=== PATIENT | male | born 1940 | race Caucasian/White ===

== ENCOUNTER 2024-09-28 22:01 | Inpatient (IN) | payer MEDICARE, OTHER, SELFPAY ==
[2024-09-28 12:33] VITALS: BMI 21.8
[2024-09-28 12:35] VITALS: BP 171/105
[2024-09-28 13:17] LABS: ALT (SGPT) 145 U/L (0-50); AST (SGOT) 137 U/L (17-59); Albumin 4.2 g/dl (3.5-5.0); Alkaline Phosphatase 389 U/L (38-126); Blood Urea Nitrogen 23 mg/dl (9-20); Carbon Dioxide 24 mmol/L (22-30); Chloride 94 mmol/L (98-107); Estimated Creatinine Clearance 47 ml/min; Glucose 110 mg/dl (70-99); Lipase 143 U/L (23-300); Potassium 4.6 mmol/L (3.5-5.1); Sodium 130 mmol/L (135-145); Total Bilirubin 19.5 mg/dl (0.2-1.3); Total Protein 7.8 g/dl (6.3-8.2); eGFR > 60.00
[2024-09-28 13:52] LABS: % Basophils 0.4 % (0-2); % Eosinophils 0.4 % (0-6); % Lymphocytes 16.4 % (20.5-51.1); % Monocytes 12.3 % (1.7-9.3); % Neutrophils 69.5 % (42.2-75.2); Absolute Immature Granulocytes 0.1 10^3/uL (0-0.05); Absolute Lymphocytes 1.2 10^3/uL (1.2-3.4); Absolute Monocytes 0.9 10^3/uL (0.1-0.6); Absolute Neutrophils 5.1 10^3/uL (1.4-6.5); Hematocrit 39.7 % (39.0-52.0); Hemoglobin 14.8 g/dL (13.0-18.0); Mean Corp Hgb Conc. 37.3 g/dL (33.0-37.0); Mean Corpuscular Hgb 32.4 pg (27.0-31.0); Mean Corpuscular Volume 86.9 fL (80.0-94.0); Mean Platelet Volume 11.1 fL (7.4-10.4); Nucleated Red Blood Cells % 0 % (-); Platelet Count 167 10^3/uL (130-400); Red Blood Cell Count 4.57 10^6/uL (4.70-6.10); Red Cell Dist. Width 14.2 % (11.5-14.5); White Blood Cell Count 7.3 10^3/uL (4.8-10.8)
--- NOTE | 2024-09-28 14:48 | ED.GENMED ---
History of Present Illness
General
Chief Complaint: Abdominal Symptoms
Source: patient, records and spouse
Exam Limitations: none
Time Seen by Provider: 09/28/24 14:46
Nursing documentation reviewed up to this point in time: agreed with
History of Present Illness
History of Present Illness:
Patient is an 84-year-old male who was referred to the emergency department by his physician after having 2 to 3 days of acute onset of painless jaundice. Patient denies any nausea, vomiting or diarrhea. Patient has no travel history. Patient
denies fever or chills. Patient states since he had his flu vaccine at the beginning of August his stools have become irrigator in color and is urine darker in color however he did not notice his skin or eyes turning yellow until 2 to 3 days ago.
Patient denies any weight loss. Patient states his stomach is queasy but no nausea or vomiting. Patient denies any chest pain, shortness of breath or palpitations. Patient had a bit of a rash on his abdomen that was itchy but that seems to have
cleared. Patient denies any bony pain.
Past History
Past History
ED Past Medical History: Cancer (Skin), GERD and HTN
Social History
Tobacco: Non-smoker
Review of Systems
Review of Systems
All Other Systems: ROS reviewed and negative except as documented in HPI and ROS
Constitutional: Reports no symptoms; Denies fever, weight loss, fatigue or chills
EENT: Reports no symptoms
Respiratory: Reports no symptoms
Cardiac: Reports no symptoms
ABD/GI: Reports anorexia; Denies abdominal pain, nausea, vomiting, diarrhea or constipated
: Reports dark urine
Musculoskeletal: Reports no symptoms
Skin: Reports rash and other (Jaundice)
Neurological: Reports no symptoms
Hematologic/Lymphatic: Reports no symptoms; Denies bleeding or bruising
Phy Exam
Physical Exam
Physical Exam:
Physical Exam
General: No apparent distress, alert and appropriate, well nourished, well hydrated
HENT: Normocephalic, supple with no lymphadenopathy, no thyromegaly
Eyes: icteric sclera, conjuctiva without injection
Heart: Regular rhythm and rate. No S3, S4. No murmur. No NVD
Lungs: No respiratory distress, no stridor, lung sounds clear and equal bilaterally
Abdomen: Soft, nontender, no organomegaly, no CVA tenderness, BS good
Neuro: Alert and oriented x 3, CN II - XII intact, no motor focality, no cerebellar dysfunction
Skin: Obviously jaundiced
Psychiatric: well kept. interactive and cooperative
Extremities: No edema, cyanosis, tenderness, Good and equal peripheral pulses.
Course
Orders/Labs/Results
Orders:
Orders
09/28/24 12:42
Electrocardiogram (*1) Urgent
Reason for Study: Abdominal Pain
EKG- Treatment ONCE
09/28/24 12:53
Complete Blood Count/With Diff Urgent
Comprehensive Metabolic Panel Urgent
Direct Bilirubin Urgent
Comment: ADD ON
Lipase Urgent
09/28/24 15:04
US Abdomen Complete/Upper Urgent
Comment:
Reason For Exam: painless jaundice
09/28/24 15:05
Add On- LAB Urgent
Tests Added?: direct bilirubin
Abnormal Lab Results
09/28/24
12:53
RBC 4.57 L 10^6/uL
(4.70-6.10)
MCH 32.4 H pg
(27.0-31.0)
MCHC 37.3 H g/dL
(33.0-37.0)
MPV 11.1 H fL
(7.4-10.4)
Abs Immat Gran (auto) 0.1 H 10^3/uL
(0-0.05)
Absolute Monos (auto) 0.9 H 10^3/uL
(0.1-0.6)
Immature Gran % 1.0 H %
(0-0.5)
Lymphocytes % 16.4 L %
(20.5-51.1)
Monocytes % 12.3 H %
(1.7-9.3)
Sodium 130 L mmol/L
(135-145)
Chloride 94 L mmol/L
(98-107)
BUN 23 H mg/dl
(9-20)
Glucose 110 H mg/dl
(70-99)
Total Bilirubin 19.5 H* mg/dl
(0.2-1.3)
Direct Bilirubin 16.6 H mg/dl
(0.0-0.4)
AST 137 H U/L
(17-59)
ALT 145 H U/L
(0-50)
Alkaline Phosphatase 389 H U/L
(38-126)
09/28/24 12:53
09/28/24 12:53
Vital Signs
Initial and Last Documented VS:
Initial Vital Signs
Temp Pulse Resp BP Pulse Ox
98 F 96 16 171/105 99
09/28/24 12:35 09/28/24 12:35 09/28/24 12:35 09/28/24 12:35 09/28/24 12:35
Last Documented Vital Signs
Temp Pulse Resp BP Pulse Ox
98 F 85 20 171/88 98
09/28/24 12:35 09/28/24 15:43 09/28/24 15:43 09/28/24 15:43 09/28/24 15:43
*Radiology
Radiology exam reviewed: radiology read reviewed (Ultrasound shows gallstones with sludge and dilated common bile duct)
*Pulse Oximetry
Patient hypoxic: no
*EKG
Interpreted by ED Provider?: Yes
EKG Intrepretation Date: 09/28/24
EKG Intrepretation Time: 19:59
Interpretation: normal
Comparison EKG: no comparison EKG present
Heart Rate: 106
Rate: tachycardiac
Rhythm: sinus
Eckert: normal axis
Interval: normal interval
QRS Pattern: normal QRS
Ischemia: no ischemia
*Senior Data Warehouse Developer Interpretation
Rate: normal
Interpretation: normal
Heart Rate: 98
Rhythm: sinus
*Critical Care Note
Total Time (30-74mins, 75-104mins- exclusive of procedures): Not Applicable
Update Note
Update Note:
Patient has an acute onset of significant jaundice with a significantly elevated direct bilirubin. Ultrasound seems to suggest gallstones is being etiology. Suspect the patient needs an ERCP and possible cholecystectomy. Patient may require MRCP.
Patient will be admitted.
ED Attending Note
-
Portions of this chart may have been created with voice recognition software.� Occasional wrong word or��sound alike� substitutions may have occurred due to the inherent limitations of voice recognition software.
Discharge Plan
Departure
Patient Disposition: Home (Routine Discharge)
Date of Disposition: 09/28/24
Time of Disposition: 20:00
Patient with high blood pressure during this ER visit?: Yes
Condition: Fair
Covid-19: Not Applicable
Discharge Problem:
Obstructive jaundice, Cholelithiasis
Prescriptions:
No Action
lisinopril 10 mg Tablet
10 mg PO QPM
Theragen Tablet
1 tab PO DAILY
triamcinolone acetonide [Nasacort] 55 mcg Aerosol,Blackstock
1 spray INTRANASAL DAILYPRN PRN (Reason: allergies)
omeprazole 20 mg Tablet,Delayed Release (Dr/Ec)
20 mg PO DAILYPRN PRN (Reason: gerd)
Referrals:
Chad Doshi PA-C [Family Provider] -
Interventions
Interventions:
*Risk Screen - Suicide Last Done: 09/28/24 12:35
*General Assessment Last Done: 09/28/24 15:46
*Neglect/Abuse Screening Last Done: 09/28/24 12:35
*ED COVID-19 Vaccine History Last Done: 09/28/24 15:46
DE-Rabnfc-Ahzldajswe Assessment Last Done: 09/28/24 15:45
Discharge Date and Time
Print Language: GUYANESE
[2024-09-28 15:43] VITALS: BP 171/88
[2024-09-28 16:23] LABS: Direct Bilirubin 16.6 mg/dl (0.0-0.4)
--- NOTE | 2024-09-28 19:57 | HPS.HSE ---
Family Physician
-
Family Physician: JAMAR DOMINGUEZ PA-C
Chief Complaint
-
as recommended by primary provider for new onset jaundice
History of Present Illness
Patient is a 84-year-old male with past medical history significant for hypertension and GERD who presented to [place] ED for evaluation of new onset jaundice. Patient states that since early August when he received his influenza shot he has
not felt 100%, unable to provide any specific symptoms. Patient noticed Wednesday increased GERD and purchased omeprazole OTC and GERD resolved with 3 dose, however, he noticed rash on his chest and stopped. On Wednesday morning patients noticed
that patient looked mildly yellow but did not say anything unsure if he really was yellow looking, by Wednesday morning the yellow was evident and patient called for appointment with primary provider. Patient went to appointment this morning where his
physician sent him for evaluation at ED. Patient states at night in bed he has mild discomfort and bloating for past several weeks. He eats a good breakfast and lunch and by dinner has diminished appetite. No other symptoms reported. Denies any
pain, nausea, vomiting, constipation, diarrhea or urinary symptoms.
Medical History
Past Medical History
Past Medical History: Reports Other
Additional Past Medical History:
hypertension
GERD
Hx Basal cell carcinoma with MOHS
Hx Bladder cancer with TURBT
Past Surgical History: Reports Other
Additional Past Surgical History:
TURBT ()
multiple MOHS (first approximately 24 years ago)
Social History
Tobacco: Non-smoker
Alcohol: None
Personal:
Living: With Family
Family History
Family History: Not pertinent
Allergies / Home Medications
Allergies reflects when Allergies were last updated in [facility].
Home Medications with original date entered in [facility]
Allergy/Medication List:
Allergies
Allergy/AdvReac Type Severity Reaction Status Date / Time
cefadroxil Allergy Hives Verified 09/28/24 12:41
Home Medications
lisinopril 10 mg tablet 10 mg PO QPM 09/28/24
omeprazole 20 mg tablet,delayed release 20 mg PO DAILYPRN PRN gerd 09/28/24
therapeutic multivitamin 1 tab PO DAILY 09/28/24
triamcinolone acetonide 55 mcg nasal spray aerosol (Nasacort) 1 spray intranasal DAILYPRN PRN allergies 09/28/24
Review of Systems
-
History Source: Patient
Constitutional: Reports Sleep Disturbance (associated with abdominal bloating and mild discomfort )
EENT: Reports No Symptoms
Respiratory: Reports No Symptoms
Cardiac: Reports No Symptoms
Abdomen/GI: Reports Other (abdominal bloating and mild discomfort )
: Reports No Symptoms
Musculoskeletal: Reports No Symptoms
Skin: Reports No Symptoms
Neurological: Reports No Symptoms
Endocrine: Reports No Symptoms
Hematologic/Lymphatic: Reports No Symptoms
Psych: Reports No Symptoms
Physical Exam
Vital Signs
Vital Signs
Temp Pulse Resp BP Pulse Ox
98 F 85 20 171/88 98
09/28/24 12:35 09/28/24 15:43 09/28/24 15:43 09/28/24 15:43 09/28/24 15:43
Physical Exam
General: Well Developed, Well Nourished, No Apparent Distress, Comfortable and Conversant
HEENT: NormoCephalic, Moist mucous membranes, Atraumatic, PERRLA, [place] Conjunctivae, Nose Appears Normal and Ears Appear Normal
Respiratory: Clear and Non Labored Respirations; No Wheezes, Rales, Rhonchi or Crackles
Cardiac: S1/S2 and Regular Rhythm; No Murmur, Rub or Gallop
Breast: Deferred by me
GI: Soft, Non Distended, Normal Bowel Sounds and Tender (mild tenderness with palpation); No Organomegaly
Rectal: Deferred by Provider
Genito-urinary: Deferred by me
Musculoskeletal: No Clubbing, No Cyanosis and No Edema
Skin: Warm and IV/Catheter Site; No Rash
Neuro: Awake, Alert, AO x 3 and Nonfocal/grossly intact
Hematologic/Lymphatic: No Lymphadenopathy
Psych: Calm and Intact Judgment/Insight
Laboratory Results
-
09/28/24 12:53
09/28/24 12:53
Laboratory Results
Total Bilirubin 19.5 mg/dl (0.2-1.3) H* 09/28/24 12:53
AST 137 U/L (17-59) H 09/28/24 12:53
ALT 145 U/L (0-50) H 09/28/24 12:53
Alkaline Phosphatase 389 U/L (38-126) H 09/28/24 12:53
Lipase 143 U/L (23-300) 09/28/24 12:53
Data Reviewed
-
Ultrasound: Report Reviewed by me (Abd: Gallstones. Intrahepatic and extrahepatic biliary dilatation. This can be seen with acute cholecystitis. Clinical and laboratory correlation recommended. Questionable stone in the common bile duct. Probable
mild gallbladder sludge. Nonvisualization of the pancreas, proximal IVC and abdominal a)
Medical Tests (Nuc Med, Echo, EKG etc): Report Reviewed by me (EKG: SINUS TACHYCARDIA)
Lab Data: Labs Reviewed by me (Tot Bili: 19.5, Direct Bili 16.6, AST 137, ALT 145, Alk Phos 389)
Impression/Plan
-
IMPRESSION/PLAN:
#acute cholecystitis
Total bilirubin 19.5, Direct bilirubin 16.6, AST 137, ALT 145, Alk Phos 389
c/o bloating and mild discomfort at night with decreased appetite only at dinner
- Admit to med/surg
- NPO at midnight
- GI Consult
- General surgery consult
#hypertension
- continue lisinopril
#hyponatremia
Na+ 130
Patient reports increased water intake to prevent constipation
- NSS 100cc/hr for 1Liter
- consider urine studies if remains hyponatremic
#GERD
#Hx Basal cell carcinoma with MOHS
#Hx Bladder cancer with TURBT
treatment with immunotherapy - BCG
Code Status: Full Code
DVT Prophylaxis: SCDs
--- NOTE | 2024-09-28 21:02 | W.PN.UPDATE ---
Update Note
Progress Note Update
Patient seen in conjunction with VALERIA. I agree with her findings on history and physical as well as assessment and plan.
This is a 84-year-old male who has a past medical history of skin cancer status post Mohs, history of bladder cancer status post cystoscopy w/ scraping and currently on cycle of BCG treatments will presents to the emergency department with
evaluation for jaundice.
Patient reports intermittent abdominal pain chronically usually at night but over the last few weeks she has had pain during the day. He describes it more as a sensation of fullness/dyspepsia. Reported had some GERD like symptoms a few days ago
for which he was started himself on omeprazole (developed a truncal rash and stopped after 3 days). 4 days ago he arose and was noted to be jaundiced by spouse. Ultimately made an appointment with [facility] and was seen today. He was clearly jaundiced
and was referred to the emergency department.
Patient himself denies vomiting. He denies nausea. Denies abdominal distention. He denies any fevers or chills. Patient denies any history of alcohol use. He denies history of gallstones.
In the emergency department he was afebrile, blood pressure was 170/80 and he was satting 99% on room air. CBC was completely within normal limits. Chemistries notable for a sodium of 130, BUN of 23 and creatinine of 1.1. Bilirubin was elevated
at 19.5 with direct bilirubin of 16.6. He had elevated alk phos as well as mild elevation of AST and ALT with normal lipase. Right upper quadrant ultrasound showed intrahepatic and extrahepatic biliary dilatation. This can be seen with acute
cholecystitis. Questionable stone in the common bile duct. Probable mild gallbladder sludge.
Patient exam is notable for jaundice. There is no RUQ tenderness to palpation.
Assessment and plan
1. Acute jaundice - obstructive jaundice likely secondary to choledocholithiasis and cholelithiasis given finding on u/s. Atypical abdominal pain. No RUQ TTP or pain. No leukocytosis, fevers or chills. No elevation in lipase. No evidence of
cholangitis. No clinical evidence of acute cholecystitis.
- admit to med/surg
- npo after midnight
- mrcp
- trend lfts
- monitor fever profile and start iv abx if febrile
- pain control and antiemetics prn
- GI consult for possible ERCP
- Surgery consult
2. Hyponatremia - Mild hyponatremia to 130. Recent decreased po intake. No hyponatremic/siadh causing meds. No significant pain. No known pulmonary or brain mets.
- IV NS overnight
- check urine osm and Na
- follow am lytes
- check tsh in am
3. HTN
- continue home lisinopril for now
DVT PPX - lovenox sq
Code status - Full Code
[2024-09-28 22:20] VITALS: BP 138/74
[2024-09-28] MEDS: NSS 1000 IV (23:10)
--- NOTE | 2024-09-28 23:15 | PTCARENOTE ---
Pt arrived via stretcher. Pt ambulated into the room, AAOx3, VVS. BP elevated. Pt has no complaints of pain at this time. Pt oriented to the room, informed about NPO status. Call lai is within reach.
[2024-09-28 23:16] VITALS: BP 173/100; BMI 21.1
[2024-09-29] VITALS (9 sets, daily range): BP systolic 131–169; BP diastolic 73–93; BMI 21.3
--- NOTE | 2024-09-29 06:48 | CON.GI ---
Addendum entered and electronically signed by Monet Todd MD 09/29/24 12:17:
I saw and examined the patient.
The CORE WINDER's note was reviewed and I agree with the note.
Comment: This is a very pleasant 84-year-old male who presented with jaundice with a bilirubin of 19.5 and normal lipase. 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 He says
that he initially noticed jaundice on Wednesday and he also had a rash with Prilosec and so stopped taking it he had been having mild epigastric discomfort with bloating and decreased appetite and has lost about 3 pounds over the past 1 to 2 weeks.
He denies pruritus currently
Assessment and plan jaundice with minimal epigastric discomfort and MRI shows concerning findings for cholangiocarcinoma discussed with Dr. Hameed. He does have gallstones but no choledocholithiasis or cholecystitis noted. he is scheduled for an
ERCP with spyglass. Currently has no signs of cholangitis discussed with patient if unable to have the procedure done today patient is very keen on going home over the weekend and coming back next week for the procedure
Addendum entered and electronically signed by VALERIA Laird 09/29/24 09:42:
09/29/24 MR with and without contrast
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 A few small portacaval lymph nodes may be reactive or metastatic.
No extrahepatic biliary ductal dilatation or choledocholithiasis.
Cholelithiasis without convincing MR evidence for acute cholecystitis.
MRI review -- Dr. Bragg reviewed with patient
will need ERCP with spy
possible timing later today if able vs Wednesday
cont NPO
I updated patient, staff and Dr. Hardin
Original Note:
Consultation
-
Date/Time Consultation Requested: 09/28/24 2300
Date/Time Consultation Performed: 09/29/24 0900
Requesting Provider: VALERIA House
Performing Provider: VALERIA Douglas, Monet Todd MD
Reason for Consultation: abnormal imaging
Medical History
Chief Complaint / HPI
Chief Complaint: jaundice
History of Present Illness:
Pt is a 84yo with hx GERD, HTN, several basal Ca removal with prior Mohs surgery, bladder CA with prior TURBT with onset of jaundice. He has also noted increased GERD with rash after Omeprazole use and stopped. In ER Pt noted with bili 19.5, AST
137, ALT 145, and alk phos 389 with normal lipase. US on admission with concern for gallstones with intra and extrahepatic biliary dilatation with possible acute cholecystitis and possible stone in CBD with mild GB sludge. In review with patient
noted jaundice since Wednesday. He also admits to some decreased appetite, dark urine, and schreiber stool with several lbs wt loss. Pt denies nausea, vomiting , dysphagia, diarrhea, constipation or rectal bleeding. Hx colonoscopy 9 years ago normal. No
prior EGD. No Anticoagulation or NSAID use. + daily ETOH 1 drink.
Past Medical History
Past Medical History: Cancer (basal cell with prior mohs surgery, Bladder CA with prior TURBT), GERD and HTN
Past Surgical History: Urological (TRUBT) and Other (mohs surgery)
Social History
Tobacco: Former Smoker (quit 1971 )
Alcohol: Daily (1 drink daily )
Drug: None
Personal:
Living: With Family
Employment: Retired
Family History
Family History: Other (no family hx colon, liver or panc malignancies )
Allergies / Home Medications
Allergy/AdvReac Type Severity Reaction Status Date / Time
cefadroxil Allergy Hives Verified 09/28/24 12:41
�Medication �Instructions �Recorded
lisinopril 10 mg tablet 10 mg PO QPM 09/28/24
omeprazole 20 mg tablet,delayed 20 mg PO DAILYPRN PRN gerd 09/28/24
release
therapeutic multivitamin 1 tab PO DAILY 09/28/24
triamcinolone acetonide 55 mcg 1 spray intranasal DAILYPRN PRN 09/28/24
nasal spray aerosol (Nasacort) allergies
Review of Systems
-
History Source: Patient
Constitutional: Reports Weight Loss, Fatigue and Other (jaundice )
EENT: Reports No Symptoms
Respiratory: Reports No Symptoms
Cardiac: Reports No Symptoms
Abdomen/GI: Reports Other (increased GERD, schreiber stools)
: Reports Dark Urine
Skin: Reports No Symptoms
Neurological: Reports No Symptoms
Endocrine: Reports No Symptoms
Hematologic/Lymphatic: Reports No Symptoms
Vital Signs
Temp Pulse Resp BP Pulse Ox
98.0 F 85 18 150/81 94
09/28/24 23:16 09/29/24 00:58 09/28/24 23:16 09/29/24 00:58 09/28/24 23:16
Physical Exam
Exam
General: Well Developed, Well Nourished, No Apparent Distress and Other (marked jaundice )
HEENT: Normocephalic
Respiratory: Clear
Cardiac: Regular Rhythm
GI: Soft, Non Tender and Non Distended
Musculoskeletal: No Clubbing and No Cyanosis
Skin: Warm and Dry
Neuro: Awake, Alert and AO x 3
Psych: Calm
Results
WBC 7.3 10^3/uL (4.8-10.8) 09/28/24 12:53
Hgb 14.8 g/dL (13.0-18.0) 09/28/24 12:53
Hct 39.7 % (39.0-52.0) 09/28/24 12:53
MCV 86.9 fL (80.0-94.0) 09/28/24 12:53
Plt Count 167 10^3/uL (130-400) 09/28/24 12:53
Absolute Neuts (auto) 5.1 10^3/uL (1.4-6.5) 09/28/24 12:53
Sodium 130 mmol/L (135-145) L 1205/24 12:53
Potassium 4.6 mmol/L (3.5-5.1) 09/28/24 12:53
Chloride 94 mmol/L (98-107) L 09/28/24 12:53
Carbon Dioxide 24 mmol/L (22-30) 09/28/24 12:53
BUN 23 mg/dl (9-20) H 09/28/24 12:53
Creatinine 1.1 mg/dL (0.7-1.3) 09/28/24 12:53
Calcium 9.0 mg/dl (8.4-10.2) 09/28/24 12:53
Total Bilirubin 19.5 mg/dl (0.2-1.3) H* 09/28/24 12:53
AST 137 U/L (17-59) H 09/28/24 12:53
ALT 145 U/L (0-50) H 09/28/24 12:53
Alkaline Phosphatase 389 U/L (38-126) H 09/28/24 12:53
Lipase 143 U/L (23-300) 09/28/24 12:53
Diagnostic Image Results:
09/29/24 US abdomen
IMPRESSION: Gallstones. Intrahepatic and extrahepatic biliary dilatation. This can be seen with acute cholecystitis. Clinical and laboratory correlation recommended. Questionable stone in the common bile duct. Probable mild gallbladder sludge.
Nonvisualization of the pancreas, proximal IVC and abdominal aorta due to overlying bowel gas.
Small left parapelvic renal cyst.
MRCP pending
Prior GI Procedures:
EGD: one
Colonoscopy: 9 years ago recalls as normal
Assessment / Plan
-
Pt is a 84yo with hx BIB, HTN, basal Ca with prior Mohs surgery, bladder CA with prior TURBT with onset of jaundice. He has also noted increased GERD with rash after Omeprazole use and stopped. In ER Pt noted with bili 19.5, AST 137, ALT 145, and
alk phos 389 with normal lipase. US on admission with concern for gallstones with intra and extrahepatic biliary dilatation with possible acute cholecysitis and possible stone in CBD with mild GB sludge.
-painless jaundice with marked elevated LFT's
-US with intra and extrahepatic biliary dilatation, possible acute cholecystitis and possible CBD stone
-GERD with recent increased symptoms
other med problems:
-bladder CA with prior TURBT
-basal cell with prior Mohs surgery
-HTN
PLAN:
Etiology of symptoms related to CBD stone vs mass vs other
plan for MRI will add with and without contrast
pending MRI results may need EUS/ERCP- timing to be determined
NPO
cont IVF
trend labs
add INR
no AC prior to admission
-
-
Thank you for consultation and allowing me to participate in the patient's care. Please call the vocational aide GI physician during the after hours with any questions or concerns.
--- NOTE | 2024-09-29 11:00 | CON.GS ---
Addendum entered and electronically signed by Sulaiman Bragg MD 09/29/24 12:03:
I saw and examined the patient.
The [employer] Winder's note was reviewed and I agree with the note.
Comment: 84M presenting with painless jaundice. He does complain of mild upper abd pain. Exam with soft abd very mildly ttp to BUQ/epigastrium, nd; imaging is c/w liver mass suspicious for malignancy; GI is engaged and will initiate work-up.
Eventual referral to tertiary ctr for HPB surgery may be of benefit pending dx/staging. and daughter were notified by phone. All ?s answered. GS will s/o
Original Note:
Consultation
-
Date/Time Consultation Requested: 09/28/242308
Requesting Provider: Angeli
Reason for Consultation: cholelithiasis, obstructive jaundice
Medical History
-
Chief Complaint: Jaundice
History of Present Illness:
Mr Blanchard is an 84 yo male with a h/o bladder ca s/p TURBT x2, basal cell skin ca s/p MOHs who presents with increase in heartburn symptoms as well as jaundice since Wednesday. He notes pale stools, dark urine and decreased appetite as well. He
reports mild abdominal discomfort which he describes as generalized with some mild discomfort to the epigastric area with palpation. He denies nausea or vomiting. He denies fevers or chills. He is markedly jaundiced with scleral icterus.
Past Medical History
Past Medical History: Cancer (bladder cancer s/p TURBTs, Basal cell skin ca s/p MOHs), GERD and HTN
Past Surgical History: Urological (TURBTs)
Social History
Tobacco: Non-Smoker
Alcohol: Daily (one drink)
Personal:
Living: With Family
Family History
Family History: Reviewed & Noncontributory
Allergies / Home Medications
Allergy/AdvReac Type Severity Reaction Status Date / Time
cefadroxil Allergy Hives Verified 09/28/24 12:41
�Medication �Instructions �Recorded �Confirmed �Type
lisinopril 10 mg tablet 10 mg PO QPM Blood Pressure 09/28/24 09/28/24 History
omeprazole 20 mg tablet,delayed 20 mg PO DAILYPRN PRN gerd 09/28/24 09/28/24 History
release
therapeutic multivitamin 1 tab PO DAILY Supplement 09/28/24 09/28/24 History
triamcinolone acetonide 55 mcg 1 spray intranasal DAILYPRN PRN 09/28/24 09/28/24 History
nasal spray aerosol (Nasacort) allergies
Review of Systems
-
History Source: Patient
All other systems: Negative unless noted
A 10 point review of systems was completed, and was negative except as per HPI.
Physical Exam
Vital Signs
Temp Pulse Resp BP Pulse Ox
97.9 F 88 18 167/87 96
09/29/24 07:00 09/29/24 07:00 09/29/24 07:00 09/29/24 07:00 09/29/24 07:00
09/28/24 09/29/24 09/30/24
06:59 06:59 06:59
Actual Weight 66.678 kg
Body Mass Index (BMI) 21.1
Lab Results
WBC 7.3 10^3/uL (4.8-10.8) 09/28/24 12:53
Hgb 14.8 g/dL (13.0-18.0) 09/28/24 12:53
Hct 39.7 % (39.0-52.0) 09/28/24 12:53
Plt Count 167 10^3/uL (130-400) 09/28/24 12:53
Abs Immat Gran (auto) 0.1 10^3/uL (0-0.05) H 09/28/24 12:53
Neutrophils % 69.5 % (42.2-75.2) 09/28/24 12:53
Physical Exam
General: No Apparent Distress
HEENT: Normocephalic and Scleral Icterus
Respiratory: Non Labored Respirations
GI: Soft, Non Distended and Tender (mild to the upper abdomen predominantly epigastric)
Skin: Warm, Dry and Jaundice
Neuro: Awake, Alert and AO x 3
Psych: Calm
Data Reviewed
-
Ultrasound: Image Personally Visualized and interpreted, Report Reviewed by me, Discussed with Physician, Discussed with Nurse, Discussed with Patient and Discussed with Family
MRI: Image Personally Visualized and interpreted, Report Reviewed by me, Discussed with Physician, Discussed with Nurse, Discussed with Patient and Discussed with Family
Labs: Labs Reviewed by me, Discussed with Physician, Discussed with Nurse, Discussed with Patient and Discussed with Family
Assessment / Plan
-
84 yo male presenting with jaundice and increased heartburn with epigastric discomfort. LFT's markedly elevated without leukocytosis. US imaging inconclusive as to etiology but did demonstrate cholelithiasis with MRCP done in follow up demonstrating
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 No choledocholithiasis or cholecystitis.
Gastroenterology is following for continued work up of new finding of liver mass with jaundice
Will need oncologic work up/staging and pending those findings; outpatient surgical evaluation at a tertiary care center with hepatobiliary specialist.
No immediate surgery warranted at this time
--- NOTE | 2024-09-29 11:09 | W.PN.HOSP.TC ---
Today's Communication/Plan
-
await GI recs on possible ERCP today
Assessment / Plan
Assessment / Plan
Assessment:
painless jaundice with marked elevated LFT's
- US: Gallstones. Intrahepatic and extrahepatic biliary dilatation. This can be seen with acute cholecystitis. Clinical and laboratory correlation recommended. Questionable stone in the common bile duct. Probable mild gallbladder sludge.
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 A few small portacaval lymph nodes may be reactive or metastatic.
- keep NPO for possible ERCP Today after review by GI, Dr. Hameed
GERD with recent increased symptoms
- continue PPI
bladder CA with prior TURBT
basal cell with prior Mohs surgery
Essential HTN
- continue YULIANA
DVT ppx: SCDs pending potential procedure
Code: Full
Anticipated Discharge: 24 - 48 hours
Subjective/Interval History
-
Date of Service: September 29, 2024
resting in bed, tearful over suspicion of cancer diagnosis
Objective Data
-
Labs:
Laboratory Results
09/29/24
10:06
WBC Pending
Hgb Pending
Hct Pending
Plt Count Pending
PT Pending
INR Pending
Sodium Pending
Potassium Pending
Chloride Pending
Carbon Dioxide Pending
BUN Pending
Creatinine Pending
Glucose Pending
Calcium Pending
Total Bilirubin Pending
AST Pending
ALT Pending
Alkaline Phosphatase Pending
Vital Signs:
Vital Signs
Temp Pulse Resp BP Pulse Ox
97.9 F 88 18 167/87 96
09/29/24 07:00 09/29/24 07:00 09/29/24 07:00 09/29/24 07:00 09/29/24 07:00
I&O
09/28/24 09/29/24 09/30/24
06:59 06:59 06:59
Intake Total 1200 / 1200
Balance 1200 / 1200
Physical Exam
-
General: No Apparent Distress
HEENT: Normocephalic, Atraumatic and Other (scleral icterus)
Respiratory: Negative Wheezes or Rales
Cardiac: Regular Rhythm and S1/S2
GI: Soft and Nontender
Genito-urinary: No Costovertebral Tender
Skin: Jaundice
Neuro: AO x 3
Psych: Calm
Data Reviewed
-
Total Time Spent with Patient (in minutes): 45
Labs: Labs Reviewed by me
[2024-09-29 11:13] LABS: Hematocrit 39.9 % (39.0-52.0); Hemoglobin 14.2 g/dL (13.0-18.0); Mean Corp Hgb Conc. 35.6 g/dL (33.0-37.0); Mean Corpuscular Hgb 31.7 pg (27.0-31.0); Mean Corpuscular Volume 89.1 fL (80.0-94.0); Mean Platelet Volume 10.4 fL (7.4-10.4); Platelet Count 196 10^3/uL (130-400); Red Blood Cell Count 4.48 10^6/uL (4.70-6.10); Red Cell Dist. Width 14.4 % (11.5-14.5); White Blood Cell Count 6.7 10^3/uL (4.8-10.8)
[2024-09-29 11:17] LABS: PT 14.5 Sec (11.4-14.6)
[2024-09-29] MEDS: NSS 1000 IV (11:23)
[2024-09-29 12:20] LABS: ALT (SGPT) 116 U/L (0-50); AST (SGOT) 113 U/L (17-59); Albumin 3.7 g/dl (3.5-5.0); Alkaline Phosphatase 373 U/L (38-126); Blood Urea Nitrogen 20 mg/dl (9-20); Calcium 8.9 mg/dl (8.4-10.2); Carbon Dioxide 25 mmol/L (22-30); Chloride 96 mmol/L (98-107); Estimated Creatinine Clearance 56 ml/min; Glucose 76 mg/dl (70-99); Potassium 4.8 mmol/L (3.5-5.1); Sodium 133 mmol/L (135-145); Total Bilirubin 20.7 mg/dl (0.2-1.3); Total Protein 7.1 g/dl (6.3-8.2); eGFR > 60.00
--- NOTE | 2024-09-29 12:24 | CM ---
Patient seen bedside.
IA completed.
Patient lies with spouse in a 1 story home at [facility].
patient independent prior to admission, drives.
No hx VN.
PCP: Chad Doshi
Pharmacy: [facility]
Plan: home, no needs anticipated.
--- NOTE | 2024-09-29 16:35 | PTCARENOTE ---
Report given to GI lab, Pt sent on stretcher with chart, Family at bedside, Pt requesting private room prior to procedure. Report given to RN that will be receiving patient post procedure, belongings placed in new room, family in waiting room,
updated on new room assignment, plan of care continues.
[2024-09-29] MEDS: ZESTRIL 10 MG PO (20:05)
[2024-09-30 07:18] LABS: Hematocrit 35.5 % (39.0-52.0); Hemoglobin 13.3 g/dL (13.0-18.0); Mean Corp Hgb Conc. 37.5 g/dL (33.0-37.0); Mean Corpuscular Hgb 32.4 pg (27.0-31.0); Mean Corpuscular Volume 86.4 fL (80.0-94.0); Mean Platelet Volume 10.3 fL (7.4-10.4); Platelet Count 199 10^3/uL (130-400); Red Blood Cell Count 4.11 10^6/uL (4.70-6.10); Red Cell Dist. Width 14.7 % (11.5-14.5); White Blood Cell Count 6.3 10^3/uL (4.8-10.8)
[2024-09-30 07:44] LABS: ALT (SGPT) 106 U/L (0-50); AST (SGOT) 133 U/L (17-59); Albumin 3.1 g/dl (3.5-5.0); Alkaline Phosphatase 304 U/L (38-126); Blood Urea Nitrogen 30 mg/dl (9-20); Calcium 8.4 mg/dl (8.4-10.2); Carbon Dioxide 20 mmol/L (22-30); Chloride 100 mmol/L (98-107); Estimated Creatinine Clearance 46 ml/min; Glucose 122 mg/dl (70-99); Potassium 5.2 mmol/L (3.5-5.1); Sodium 133 mmol/L (135-145); Total Bilirubin 20.2 mg/dl (0.2-1.3); Total Protein 6.1 g/dl (6.3-8.2); eGFR > 60.00
[2024-09-30 08:19] VITALS: BP 128/78
--- NOTE | 2024-09-30 08:20 | W.PN.GI.CBS2 ---
Today's Communication / Plan
-
Ok for DC
Oncology and GI f/u with as OP
Assessment / Plan
-
Pt is a 84yo with hx BIB, HTN, basal Ca with prior Mohs surgery, bladder CA with prior TURBT with onset of jaundice. He has also noted increased GERD with rash after Omeprazole use and stopped. In ER Pt noted with bili 19.5, AST 137, ALT 145, and
alk phos 389 with normal lipase. US on admission with concern for gallstones with intra and extrahepatic biliary dilatation with possible acute cholecysitis and possible stone in CBD with mild GB sludge.
-painless jaundice with marked elevated LFT's
-US with intra and extrahepatic biliary dilatation, possible acute cholecystitis and possible CBD stone
-GERD with recent increased symptoms
other med problems:
-bladder CA with prior TURBT
-basal cell with prior Mohs surgery
-HTN
PLAN:
jaundice MRI shows concerning findings for cholangiocarcinoma. He does have gallstones but no choledocholithiasis or cholecystitis noted.
Status post ERCP 09/29 with spyglass, biopsy and plastic stent in left hepatic duct.
Recommend oncology consultation as outpatient once the pathology results are confirmed
Needs follow-up with Dr. Hameed in 2 to 3 months
Okay to OR home today
Subjective
Subjective
Date of Service: September 30, 2024
Denies abdominal pain he is status post ERCP with spyglass and stent placement yesterday with Dr. Hameed. LFTs are stable
Objective
Data Reviewed
Laboratory Data:
Laboratory Results
09/30/24 06:06
09/30/24 06:05
Laboratory Results
PT 14.5 Sec (11.4-14.6) 09/29/24 10:06
INR 1.10 09/29/24 10:06
Total Bilirubin 20.2 mg/dl (0.2-1.3) H* 09/30/24 06:05
AST 133 U/L (17-59) H 09/30/24 06:05
ALT 106 U/L (0-50) H 09/30/24 06:05
Alkaline Phosphatase 304 U/L (38-126) H 09/30/24 06:05
Lipase 143 U/L (23-300) 09/28/24 12:53
09/29/24 ERCP with spyglass Impression: - The major papilla appeared normal.
- Nodularity and increased vascular pattern of the
bifurcation and left hepatic ducts mucosa was found.
- Villiform appearance of the bifurcation and left
hepatic ducts mucosa was found.
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 The
stricture was malignant appearing.
- A second localized biliary stricture was found in
the mid common bile duct.
- The left main hepatic duct and left intrahepatic
branches were moderately dilated, acquired.
- A biliary sphincterotomy was performed.
- Major papilla was successfully dilated.
- Biopsy was performed at the stenosis in hilar region.
- One plastic stent was placed into the left hepatic
duct.
Vital Signs and I&O:
Vital Signs
Temp Pulse Resp BP Pulse Ox
98.4 F 87 16 128/78 96
09/30/24 08:19 09/30/24 08:19 09/30/24 08:19 09/30/24 08:19 09/30/24 08:19
I&O
09/29/24 09/30/24 10/01/24
06:59 06:59 06:59
Intake Total 1200 / 1200 1150 / 1150
Balance 1200 / 1200 1150 / 1150
Physical Exam
Physical Exam
HEENT: Other (icteric)
Cardiology: Normal Sinus Rhythm
Pulmonary: Clear
GI: Soft, Non Distended, Non Tender and Normal Bowel Sounds
[2024-09-30] MEDS: LOKELMA 5 GRAM PO (09:53)
--- NOTE | 2024-09-30 10:31 | W.PN.HOSP.TC ---
Today's Communication/Plan
-
dc to home with OP GI and Onc f/u
Assessment / Plan
Assessment / Plan
Assessment:
painless jaundice with marked elevated LFT's
- US: Gallstones. Intrahepatic and extrahepatic biliary dilatation. This can be seen with acute cholecystitis. Clinical and laboratory correlation recommended. Questionable stone in the common bile duct. Probable mild gallbladder sludge.
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 A few small portacaval lymph nodes may be reactive or metastatic.
- s/p ERCP 09/29: biliary sphincterotomy, biopsies and L hepatic duct stent placed. OP GI F/u in 3 months
- f/u path OP
- regular diet
- OP oncology consultation
GERD with recent increased symptoms
- continue PPI
bladder CA with prior TURBT
basal cell with prior Mohs surgery
Essential HTN
- continue YULIANA
Hyperkalemia
- x1 Lokelma prior to dc
DVT ppx: SCDs
Code: Full
More than 30 minutes spent in discharge including
Final examination of the patient
Summarizing hospital stay
Instructions for continuing care to all relevant caregivers
Preparation of discharge records, prescriptions, and referral forms
Total time spent (in minutes): 41
Anticipated Discharge: Today
Subjective/Interval History
-
Date of Service: September 30, 2024
s/p ERCP with biopsy and stenting
Tolerating clears
Objective Data
-
Labs:
Laboratory Results
09/30/24 09/30/24
06:05 06:06
WBC 6.3
Hgb 13.3
Hct 35.5 L
Plt Count 199
Sodium 133 L
Potassium 5.2 H
Chloride 100
Carbon Dioxide 20 L
BUN 30 H
Creatinine 1.1
Glucose 122 H
Calcium 8.4
Total Bilirubin 20.2 H*
AST 133 H
ALT 106 H
Alkaline Phosphatase 304 H
Vital Signs:
Vital Signs
Temp Pulse Resp BP Pulse Ox
98.4 F 87 16 128/78 96
09/30/24 08:19 09/30/24 08:19 09/30/24 08:19 09/30/24 08:19 09/30/24 08:19
I&O
09/29/24 09/30/24 10/01/24
06:59 06:59 06:59
Intake Total 1200 / 1200 1150 / 1150
Balance 1200 / 1200 1150 / 1150
Physical Exam
-
General: No Apparent Distress
HEENT: Normocephalic, Atraumatic and Other (scleral icterus)
Respiratory: Clear to Auscultation; Negative Wheezes or Rales
Cardiac: Regular Rhythm and S1/S2
GI: Soft and Nontender
Genito-urinary: No Costovertebral Tender
Skin: Jaundice
Neuro: AO x 3
Psych: Calm
Data Reviewed
-
Total Time Spent with Patient (in minutes): 44
Labs: Labs Reviewed by me
[2024-09-30 11:35] VITALS: BP 129/63; PULSE 60; O2SAT 100
[2024-09-30 11:50] VITALS: BP 129/63; PULSE 62; O2SAT 100
--- NOTE | 2024-09-30 12:41 | W.DS.TRANS ---
DC Summary - [place] [employer] Work[employer]
-
Discharge Instructions:
Discharge Diagnosis/Procedures elevated LFTs, obstructive jaundice with hepato-
biliary malignancy suspected s/p ERCP 09/29/24
Diet Regular,Supplements
Activity As tolerated
Bathing Restrictions None
Instructions:
Stand-Alone Forms:
Changes to Home Medications: No
Discharge Medications:
DC Medications w/original date entered in [facility]
lisinopril 10 mg tablet 10 mg PO QPM Blood Pressure 09/28/24
omeprazole 20 mg tablet,delayed release 20 mg PO DAILYPRN PRN gerd 09/28/24
therapeutic multivitamin 1 tab PO DAILY Supplement 09/28/24
triamcinolone acetonide 55 mcg nasal spray aerosol (Nasacort) 1 spray intranasal DAILYPRN PRN allergies 09/28/24
Home Medication Changes
Pending Results: No
Total time spent discharging patient (in min): 41
--- NOTE | 2024-09-30 12:47 | PTOTSP ---
Patient demonstrates that all functional mobility is at an independent level today. He does not need to negotiate stairs. He was able to ambulate through the hallway also independently. patient has no concerns regarding returning home. Educated
patient to gradually increase activity level at home - doing as much as he can, and ask for help or take breaks until his stamina returns to baseline. At this time, patient has no skilled needs while in house. If this situation changes, please
reconsult. At this time, will sign off.
--- NOTE | 2024-09-30 13:29 | CM ---
Pt for dc today.
No transportation needs identified and no VN needs.
IMM issued to pt verbally and agreeable/understanding.
== END 2024-09-30 15:35 | disposition home or self-care (01) | DRG 435 ==
LOC: 4 WEST ACU 22:01
PROVIDERS: Emergency Medicine; Internal Medicine Gastroenterology; Nurse Practitioner Adult Health; Nurse Practitioner Family; Radiology Diagnostic Radiology; ADMITTING PHYSICIAN Internal Medicine; ATTENDING PHYSICIAN Internal Medicine; CONSULT PHYSICIAN Internal Medicine Gastroenterology; EMERGENCY PHYSICIAN Emergency Medicine; FAMILY PHYSICIAN Physician Assistant Medical; OTHER PHYSICIAN Surgery
PROC: BF101ZZ Fluoroscopy of Bile Ducts using Low Osmolar Contrast (ICD-10-PCS; 2024-09-29)
PROC: 0FB78ZX Excision of Common Hepatic Duct, Via Natural or Artificial Opening Endoscopic, Diagnostic (ICD-10-PCS; 2024-09-29)
PROC: 0F768DZ Dilation of Left Hepatic Duct with Intraluminal Device, Via Natural or Artificial Opening Endoscopic (ICD-10-PCS; 2024-09-29)
DX: C22.1 Intrahepatic bile duct carcinoma (principal); K83.1 Obstruction of bile duct; E87.1 Hypo-osmolality and hyponatremia; K21.9 Gastro-esophageal reflux disease without esophagitis; Z85.51 Personal history of malignant neoplasm of bladder; Z85.828 Personal history of other malignant neoplasm of skin; I10 Essential (primary) hypertension; E87.5 Hyperkalemia; N28.1 Cyst of kidney, acquired; K80.20 Calculus of gallbladder without cholecystitis without obstruction
CPT/HCPCS: 88305; 74183; 74330; 76000; 76700; 80053; 82248; 83690; 85025; 85027; 85610; 93005; 97161; 97165; 99285; A9575; C1726; C1769; C1876; C2617